=== PATIENT | male | born 1970 | race Hispanic/Latino ===

== ENCOUNTER 2022-01-27 09:33 | Emergency (ER) | payer SELFPAY ==
[2022-01-27 09:48] VITALS: BP 138/80; PULSE 90; RESP 18; TEMP 36.9; O2SAT 98
--- NOTE | 2022-01-27 10:36 | ED.URI ---
HPI - URI/Sore Throat General Chief Complaint: Upper Respiratory Infection Stated Complaint: Headache,Bodyache Time Seen by Provider: 01/27/22 10:36 Source: patient Mode of arrival: ambulatory Limitations: no limitations History of Present Illness HPI Narrative: 51-year-old male presents with complaint of headache, body aches, fever, chills, fatigue for 3 days. Denies nausea vomiting diarrhea. No cough no congestion or sore throat. All states headache is what is bothering him the most. Is taping ibuprofen with some relief. He reports that he has had a few coworkers that are also sick. All systems reviewed and negative except as noted above. Related Data Home Medications Medication Instructions Recorded Confirmed allopurinol 100 mg tablet 200 mg PO DAILY 01/27/22 01/27/22 atenolol 100 mg-chlorthalidone 25 1 tablet PO DAILY 01/27/22 01/27/22 mg tablet atorvastatin 40 mg tablet 40 mg PO DAILY 01/27/22 01/27/22 telmisartan 80 mg tablet 80 mg PO DAILY 01/27/22 01/27/22 Allergies Allergy/AdvReac Type Severity Reaction Status Date / Time No Known Allergies Allergy Verified 01/27/22 10:18 Review of Systems Review of Systems: CONSTITUTIONAL: Reports fever, chills, or sweats. EYES: Denies visual changes, redness, or discharge. ENT: Denies rhinorrhea, congestion, sore throat, or otalgia. CARDIOVASCULAR: Denies chest pain, palpitations, or edema. RESPIRATORY: Denies cough or dyspnea. GASTROINTESTINAL: Denies abdominal pain, nausea, vomiting, or diarrhea. GENITOURINARY: Denies dysuria or hematuria. SKIN: Denies rash or itching. MUSCULOSKELETAL: Denies back pain, joint pain. Reportsmyalgia. NEUROLOGIC: reports headache. Denies numbness, or weakness. PSYCHIATRIC: Denies anxiety or depression. All other systems reviewed are negative, except as documented in HPI. PMFSH Comments At time of signature, agree with nursing past medical, surgical, social and family history. There is no relevant family history pertinent to the presenting complaint. Exam Narrative: GENERAL: This is a well-nourished, well-developed patient. Patient is ill-appearing but in no distress. HEAD: normocephalic, atraumatic. EYES: PERRL. Sclera clear/white. Vision is grossly intact. EARS: External ears normal, auditory canals clear and without drainage, TMs normal without perforation. Hearing grossly intact. NOSE: External nose normal with no obvious nasal discharge, nares without redness, no rhinorrhea. THROAT: Mucous membranes moist, posterior pharynx clear. NECK: Neck supple, non-tender without lymphadenopathy, masses or thyromegaly. CARDIOVASCULAR: Regular rate and rhythm without murmurs, gallops, or rubs. RESPIRATORY: Clear to auscultation. Breath sounds equal bilaterally. No wheezes, rales, or rhonchi. SKIN: warm, Dry, intact with no suspicious lesions or rash, good texture and turgor. NEURO: awake, alert, and oriented to person, place and time. There were no obvious focal neurologic abnormalities. EXTREMITIES: No joint tenderness, effusion, or edema noted. delete Course Course Level of Care: Express Care Visit Vital Signs Vital signs: Vital Signs Temperature 36.9 C 01/27/22 09:48 Pulse Rate 90 01/27/22 09:48 Respiratory Rate 18 01/27/22 09:48 Blood Pressure 138/80 01/27/22 09:48 Pulse Oximetry 98 01/27/22 09:48 Oxygen Delivery Room Air 01/27/22 09:48 Temperature 36.9 C 01/27/22 09:48 Pulse Rate 90 01/27/22 09:48 Respiratory Rate 18 01/27/22 09:48 Blood Pressure 138/80 01/27/22 09:48 Pulse Oximetry 98 01/27/22 09:48 Oxygen Delivery Room Air 01/27/22 09:48 Reviewed MDM - URI/Sore Throat MDM Narrative Medical decision making narrative: negative influenza and COVID test today. Vital signs are stable. Exam negative. Symptoms are viral. Patient is aware of diagnosis, understands and agrees to treatment plan. Anticipatory guidance given. Patient agrees to follow-up as dire
== END 2022-01-27 10:50 | disposition home or self-care (01) ==
PROVIDERS: Emergency Provider Nurse Practitioner Family; PCP Physician Assistant
DX: B34.9 Viral infection, unspecified (principal); Z20.822 Contact with and (suspected) exposure to COVID-19; I10 Essential (primary) hypertension; M10.9 Gout, unspecified
CPT/HCPCS: 87426; 99213; C9803; G0463

== ENCOUNTER 2023-12-23 17:58 | Emergency (ER) | payer SELFPAY ==
--- NOTE | 2023-12-23 18:02 | ED.GENADULT ---
HPI - General Adult General Chief complaint: Weakness Stated complaint: Weakness/High BP/SOB Time Seen by Provider: 12/23/23 18:03 Source: patient and family (Daughter interpreted) Mode of arrival: ambulatory Limitations: no limitations History of Present Illness HPI narrative: Patient is a 53-year-old male who presents with weakness, shortness of breath, heart racing episodes that started at 11:00 a.m. this morning. Patient states that episode starts with heart racing and being short of breath and then starts sweating and feels fatigued. Patient has had multiple of these episodes throughout the day. Patient has history of high blood pressure but was 130s over 90s at home. Denies any known sick contacts. Denies any fever, chills, nausea, vomiting, diarrhea. Denies any numbness or tingling on 1 side of the body. No history of stroke. Related Data Home Medications Medication Instructions Recorded Confirmed allopurinol 100 mg tablet 200 mg PO DAILY 01/27/22 12/23/23 atenolol 100 mg-chlorthalidone 25 1 tablet PO DAILY 01/27/22 12/23/23 mg tablet atorvastatin 40 mg tablet 40 mg PO DAILY 01/27/22 12/23/23 telmisartan 80 mg tablet 80 mg PO DAILY 01/27/22 12/23/23 Allergies Allergy/AdvReac Type Severity Reaction Status Date / Time No Known Allergies Allergy Verified 12/23/23 18:01 Review of Systems Review of Systems: All systems reviewed & are unremarkable except as noted in HPI and below Constitutional: Constitutional: Denies body ache(s), Denies chills, Reports fatigue, Denies fever(s), Denies headache(s), Denies malaise and Reports weakness Eyes: Eyes: Denies blurry vision, Denies irritation and Denies loss of vision ENT: Denies otalgia, Denies headache(s), Denies nasal discharge, Denies sinus pain and Denies sore throat Cardiovascular: Cardiovascular: Denies chest pain, Denies irregular heart rhythm, Reports palpitations and Reports dyspnea Respiratory: Respiratory: Denies dyspnea Gastrointestinal: Gastrointestinal: Denies abdominal pain, Denies melena, Denies hematochezia, Denies diarrhea, Denies nausea and Denies vomiting Musculoskeletal: Musculoskeletal: Denies back pain, Denies myalgias and Denies arthralgias Integumentary/Breasts: Skin/Breast: Denies pruritus and Denies rash Neurologic: Denies headache(s), Denies loss of vision and Denies weakness Psychiatric: Psychiatric: Reports no additional psychiatric complaints Endocrine: Endocrine: Denies fatigue PMFSH Comments At time of signature, agree with nursing past medical, surgical, social and family history. There is no relevant family history pertinent to the presenting complaint. Exam Const: General: cooperative, healthy appearing, comfortable, no acute distress and well nourished Nutritional Appearance: well nourished Orientation/consciousness: patient oriented x3 Limitations: no limitations HENMT: Head: normal to inspection, normocephalic and atraumatic Ears: hearing grossly normal bilaterally and external ears normal Face/Nose/Sinus: Normal external nose present, normal facial exam and face symmetric Face and sinus: normal facial exam and face symmetric Mouth: Yes lip normal Eyes: General: appearance normal, both eyes and all related structures Alignment and Position: alignment normal and position normal Periorbital: periorbital findings normal Eyelids: eyelids normal Pupils: Equal, round and reactive pupils present EOM: EOMs intact bilaterally Neck: Neck: normal visual inspection, full ROM and supple Chest: Chest palpation & inspection: normal inspection of the chest Resp: Effort & Inspection: normal respiratory effort and able to speak in complete sentences Auscultation: clear to auscultation bilaterally Cardio: Rate: regular rate Rhythm: regular rhythm Heart sounds: S1 normal heart sound present and S2 normal heart sound present GI: Inspection: normal to inspection Skin: General skin exam: normal color and no rashes or les
[2023-12-23 18:07] VITALS: BP 135/90; PULSE 49; RESP 16; TEMP 36.6; O2SAT 99
== END 2023-12-23 18:23 | disposition short-term general hospital (02) ==
PROVIDERS: Emergency Provider Nurse Practitioner Family; PCP Physician Assistant
DX: R29.810 Facial weakness (principal); R00.2 Palpitations
CPT/HCPCS: 99215; G0463

== ENCOUNTER 2023-12-23 18:48 | Emergency (ER) | payer SELFPAY ==
--- NOTE | ~2023-12-23 | CT_ITS ---
CT brain wo con Ordering provider: Jessica Wyatt MD History: 53 years Male with . facial droop . Comparison: None. Technique: CT of the head without contrast. Radiation reduction technique utilized.The dose-length product was 681 mGy-cm. FINDINGS: BRAIN PARENCHYMA AND CSF SPACES: No midline shift, mass effect or hemorrhage. The brain parenchyma a nd CSF spaces are otherwise normal. VISUALIZED PARANASAL SINUSES: Well aerated. 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 MASTOIDS: Well aerated. BONES: The bones appear intact. SOFT TISSUES: Visualized nasopharynx is normal. Superficial soft tissues are normal. IMPRESSION: No acute intracranial findings. Reviewed, dictated and finalized at location A.
[2023-12-23 18:51] VITALS: BP 146/96; PULSE 56; RESP 15; TEMP 36.5; O2SAT 100
[2023-12-23 22:03] VITALS: BP 135/86; PULSE 48; RESP 16; TEMP 36.6; O2SAT 100
--- NOTE | 2023-12-23 22:25 | ED.NEUROSD ---
HPI - Neuro Symptoms/Deficit General Chief Complaint: Suspected CVA Stated Complaint: possible stroke, montserratian speaking Time Seen by Provider: 12/23/23 21:51 History of Present Illness HPI Narrative: 53-year-old male presenting to the emergency department for evaluation for rapid heart rate associated with panic attacks. Patient family was translating and they declined the use the transiting software. Patient was adamant that the anxiety starts 1st and then he has the sensation rapid heart rate. Patient denies any prior history of CVA or OK. patient states that he does ruminate on things and hates driving in traffic. Today he states he was thinking about things this caused increased anxiety and then had rapid heart rate. Patient initially presented to urgent care they are concerned about facial droop. Patient reports all symptoms have resolved upon arrival to the emergency department. Related Data Home Medications Medication Instructions Recorded Confirmed allopurinol 100 mg tablet 200 mg PO DAILY 01/27/22 12/23/23 atenolol 100 mg-chlorthalidone 25 1 tablet PO DAILY 01/27/22 12/23/23 mg tablet atorvastatin 40 mg tablet 40 mg PO DAILY 01/27/22 12/23/23 telmisartan 80 mg tablet 80 mg PO DAILY 01/27/22 12/23/23 Allergies Allergy/AdvReac Type Severity Reaction Status Date / Time No Known Allergies Allergy Verified 12/23/23 19:02 Review of Systems Review of Systems: All systems reviewed & are unremarkable except as noted in HPI and below Exam Narrative: APPEARANCE: Well appearing, no pain, no distress, well-nourished. HEAD: normocephalic, atraumatic. EYES: PERRLA/EOMI, conjunctivae clear. NOSE: Normal no drainage EARS:TMS clear with good light reflex. THROAT: Pharynx clear, no exudate. NECK: Supple. No adenopathy, no masses. RESPIRATORY: Airway patent, respirations nonlabored. Clear to auscultation bilaterally, no rales, rhonchi, wheezing. CARDIOVASCULAR: Regular rate and rhythm without murmurs rubs or gallops. ABDOMINAL: Soft, nontender, nondistended, normal bowel sounds MUSCULOSKELETAL: Moves all extremities. Strength/ROM intact, No edema, No calf tenderness. NEURO: Alert. Cranial nerves II through XII intact. Grossly intact SKIN: Warm, dry. Normal Color Course Vital Signs Vital signs: Vital Signs Temperature 97.7 F 12/23/23 18:51 Pulse Rate 56 L 12/23/23 18:51 Respiratory Rate 15 12/23/23 18:51 Blood Pressure 146/96 H 12/23/23 18:51 Pulse Oximetry 100 12/23/23 18:51 Oxygen Delivery Room Air 12/23/23 18:51 Temperature 97.8 F 12/23/23 22:03 Pulse Rate 48 L 12/23/23 22:03 Respiratory Rate 16 12/23/23 22:03 Blood Pressure 135/86 12/23/23 22:03 Pulse Oximetry 100 12/23/23 22:03 Oxygen Delivery Room Air 12/23/23 18:51 MDM - Neuro Symptoms/Deficit MDM Narrative Medical decision making narrative: 53-year-old male presents to the emergency department for CVA workup. Head CT was negative. EKG showed normal sinus rhythm. Discharge Plan Discharge Clinical Impression: Palpitations, Anxiety Patient Disposition: Home, Self-Care Condition: Stable Instructions: Antibiotic Form, Heart Palpitations (DC), Anxiety (ED) Additional Instructions: Medication as directed for anxiety. Have close follow-up with primary care physician for additional outpatient cardiac testing. If you have any worsening symptoms then please call or return to the emergency department. Prescriptions: New lorazepam [Ativan] 0.5 mg tablet 0.5 mg PO BID PRN (Reason: anxiety) Qty: 14 0RF No Action atorvastatin 40 mg tablet 40 mg PO DAILY atenolol-chlorthalidone 100-25 mg tablet 1 tablet PO DAILY allopurinol 100 mg tablet 200 mg PO DAILY telmisartan 80 mg tablet 80 mg PO DAILY Follow-up/Referrals: Sarai,AMANDA Brantley [Primary Care Provider] -
--- NOTE | 2023-12-23 22:35 | ECG_ITS ---
Test Date: 2023-12-23 22:55:00 Measurements Intervals [place] Rate: 54 P: 0 MN: 0 QRS: 29 QRSD: 102 T: 43 QT: 406 QTc: 385 Interpretive Statements SINUS BRADYCARDIA OTHERWISE NORMAL ECG No previous ECG available for comparison Electronically Signed On 12-24-2023 07:21:30 CDT by Aram Johnson M.D.
[2023-12-23] MEDS: LORazepam (*CRX) 0.5 MG TABLET PO (22:42)
== END 2023-12-23 23:15 | disposition home or self-care (01) ==
PROVIDERS: Emergency Provider Emergency Medicine; PCP Physician Assistant
DX: F41.9 Anxiety disorder, unspecified (principal); R00.2 Palpitations; R00.1 Bradycardia, unspecified
CPT/HCPCS: 70450; 93005; 99284; A9270

== ENCOUNTER 2024-03-27 01:41 | Emergency (ER) | payer SELFPAY ==
--- NOTE | ~2024-03-27 | XR_ITS ---
EXAMINATION: XR chest 2V DATE: 03/27/2024 02:26 INDICATION: Chest pain. Shortness of breath. TECHNIQUE: Frontal and lateral views of the chest were obtained. COMPARISON: None. FINDINGS: There is no pneumonia, pleural effusion, or pneumothorax. The heart size is normal. There i s a prominent left pericardial fat pad. IMPRESSION: 1. No acute cardiopulmonary disease. Reviewed, dictated and finalized at location A. STANT PROFESSOR OF BUSINESS
[2024-03-27 01:47] VITALS: BP 132/76; PULSE 56; RESP 15; TEMP 36.6; O2SAT 100
--- NOTE | 2024-03-27 01:53 | ECG_ITS ---
Test Date: 2024-03-27 01:58:18 Measurements Intervals [place] Rate: 54 P: 43 MA: 169 QRS: 29 QRSD: 98 T: 57 QT: 395 QTc: 377 Interpretive Statements SINUS BRADYCARDIA ABNORMAL ECG Electronically Signed On 03-27-2024 10:49:08 MINERAL SURVEYING TECHNICIAN by Chai Hutson M.D.
[2024-03-27 02:09] LABS: Basophils Absolute Auto 0.1 K/mm3 (0.0-0.1); Basophils Percent Auto 1.1 % (0.2-1.2); Eosinophils Absolute Auto 0.2 K/mm3 (0-0.3); Hematocrit 42.9 % (42.0-52.0); Hemoglobin 14.9 g/dL (14.0-18.0); Immature Granulocyte Absolute 0.05 K/mm3 (0.00-0.031); Immature Granulocyte Percent A 0.5 % (0-0.5); Lymphocytes Absolute Auto 3.94 K/mm3 (0.9-3.2); Lymphocytes Percent Auto 37.7 % (18.3-44.2); Mean Corpuscular HGB Conc 34.7 g/dl (32-36); Mean Corpuscular Hemoglobin 29.6 pg (26-34); Mean Corpuscular Volume 85.3 fl (80-100); Mean Platelet Volume 11.3 fl (7.4-10.4); Monocytes Absolute Auto 0.9 K/mm3 (0.1-0.6); Monocytes Percent Auto 8.1 % (2.6-8.5); Neutrophils Absolute Auto 5.3 K/mm3 (1.3-6.7); Neutrophils Percent Auto 50.6 % (45.5-73.1); Platelet Count Result 260 k/mm3 (150-375); Red Blood Count 5.03 M/mm3 (4.6-6.20); Red Cell Distribution Width 14.3 % (11.5-14.5); White Blood Count 10.5 K/mm3 (4.5-10.0)
[2024-03-27 02:25] LABS: Alanine Aminotransferase 27 U/L (6-50); Albumin Level 4.8 g/dL (3.5-5.1); Alkaline Phosphatase 112 U/L (38-126); Anion Gap 15 mmol/L (4-12); Aspartate Amino Transferase 29 U/L (17-59); Bilirubin,Total 0.8 mg/dL (0.2-1.3); Blood Urea Nitrogen 19 mg/dL (9-20); Calcium 9.5 mg/dL (8.4-10.2); Carbon Dioxide 22 mmol/L (22-30); Chloride 98 mmol/L (98-107); Estimated CRCL calculation 74 ml/min; Estimated Glomerular Filt Rate > 60; Glucose 130 mg/dL (65-110); Lipase 157 U/L (23-300); Potassium 3.4 mmol/L (3.4-5.0); Sodium 135 mmol/L (137-145)
[2024-03-27 02:36] LABS: Prothrombin Time 13.5 Seconds (11.1-14.7)
[2024-03-27 02:37] LABS: Troponin I < 0.012 ng/mL (0.000-0.034)
[2024-03-27 06:49] LABS: Troponin I < 0.012 ng/mL (0.000-0.034)
[2024-03-27 07:40] VITALS: BP 138/81; PULSE 56; PULSE 57; RESP 17; O2SAT 98
--- NOTE | 2024-03-27 08:16 | ED_ITS ---
HPI - General Adult General Chief complaint: Chest Pain Stated complaint: chest pain Time Seen by Provider: 03/27/24 07:31 History of Present Illness HPI narrative: Patient is a 54-year-old male who presents ER with chest pain. Has been evaluated for chest pain the past. Recently started on sertraline for anxiety. He is only on been on it for a week. No fevers or chills or sweats. No exertional component. Occasionally worsens when he is having stress at work. He did take Ativan in the past which has helped his symptoms. Related Data Home Medications ?Medication ?Instructions ?Recorded ?Confirmed ?Last Taken ?Type allopurinol 100 mg tablet 200 mg PO DAILY 01/27/22 12/23/23 Unknown History atenolol 100 mg-chlorthalidone 25 1 tablet PO DAILY 01/27/22 12/23/23 Unknown History mg tablet atorvastatin 40 mg tablet 40 mg PO DAILY 01/27/22 12/23/23 Unknown History telmisartan 80 mg tablet 80 mg PO DAILY 01/27/22 12/23/23 Unknown History Allergies Allergy/AdvReac Type Severity Reaction Status Date / Time No Known Allergies Allergy Verified 03/27/24 07:41 Review of Systems 2 Review of Systems: All systems reviewed & are unremarkable except as noted in HPI and below Constitutional: Constitutional: Reports no additional constitutional complaints ENT: Reports system reviewed and no additional complaints, except as documented Cardiovascular: Cardiovascular: Reports no additional cardiovascular complaints Respiratory: Respiratory: Reports no additional respiratory complaints Gastrointestinal: Gastrointestinal: Reports no additional gastrointestinal complaints PMFSH Past Medical History Medical History (Updated 03/27/24 @ 10:09 by Campbell Summers MD) Pre-diabetes Hyperlipidemia Hypertension Exam 2 Narrative: GENERAL: Well-appearing, well-nourished, and in no acute distress. HEAD: Normocephalic, atraumatic. ENT: Mucous membranes moist. CHEST: Clear to auscultation. No respiratory distress. HEART: Regular rate and rhythm. Normal peripheral pulses. ABDOMEN: Soft, nontender, nondistended. EXTREMITIES: Normal range of motion. No edema. SKIN: Warm, dry, no rash. NEURO: Alert and oriented x3. PSYCH: Normal mood and affect. Course Course Emergency Course: Troponin negative x2. Patient given reassurance. Encouraged continues to sertraline and will give some Ativan for panic attacks. Vital Signs Vital signs: Vital Signs Temperature 97.9 F 03/27/24 01:47 Pulse Rate 56 L 03/27/24 01:47 Respiratory Rate 15 03/27/24 01:47 Blood Pressure 132/76 03/27/24 01:47 Pulse Oximetry 100 03/27/24 01:47 Oxygen Delivery Room Air 03/27/24 01:47 Temperature 97.9 F 03/27/24 01:47 Pulse Rate 55 L 03/27/24 08:27 Respiratory Rate 20 03/27/24 08:27 Blood Pressure 122/84 03/27/24 08:27 Pulse Oximetry 99 03/27/24 08:27 Oxygen Delivery Room Air 03/27/24 07:40 Medical Decision Making Vital Signs Vital Signs: Vital Signs Temperature 97.9 F 03/27/24 01:47 Pulse Rate 56 L 03/27/24 01:47 Respiratory Rate 15 03/27/24 01:47 Blood Pressure 132/76 03/27/24 01:47 Pulse Oximetry 100 03/27/24 01:47 Oxygen Delivery Room Air 03/27/24 01:47 Temperature 97.9 F 03/27/24 01:47 Pulse Rate 55 L 03/27/24 08:27 Respiratory Rate 20 03/27/24 08:27 Blood Pressure 122/84 03/27/24 08:27 Pulse Oximetry 99 03/27/24 08:27 Oxygen Delivery Room Air 03/27/24 07:40 Lab Data 03/27/24 02:01 03/27/24 02:01 Labs: Lab Results 03/27/24 03/27/24 Range/Units 02:01 06:21 WBC 10.5 H (4.5-10.0) K/mm3 RBC 5.03 (4.6-6.20) M/mm3 Hgb 14.9 (14.0-18.0) g/dL Hct 42.9 (42.0-52.0) % MCV 85.3 (80-100) fl MCH 29.6 (26-34) pg MCHC 34.7 (32-36) g/dl RDW 14.3 (11.5-14.5) % Plt Count 260 (150-375) k/mm3 MPV 11.3 H (7.4-10.4) fl Immature Gran % (Auto) 0.5 (0-0.5) % Neut % (Auto) 50.6 (45.5-73.1) % Lymph % (Auto) 37.7 (18.3-44.2) % [place]wey % (Auto) 8.1 (2.6-8.5) % Eos % (Auto) 2.0 (0-4.4) % Baso % (Auto) 1.1 (0.2-1.2) % Lymph # (Auto) 3.94 H (0.9-3.2) K/mm3 [place] # (Auto) 0.9 H (0.1-0.6) K/mm3 Eos # (Auto) 0.2 (0-0.3) K/mm3 Baso # (Auto) 0.1 (0.0-0.1) K/mm3 Abs Immat Gran (auto) 0.05 H (0.00-0.031) K/mm3 Absolute Neuts (auto) 5.3 (1.3-6.7) K/mm3 Absolute Nucleated RBC 0.000 (0.0-0.012) K/mm3 Nucleated RBC % 0.0 (0.0-0.2) % PT 13.5 (11.1-14.7) Seconds INR 1.0 APTT 30.0 (22.3-36.8) Seconds Sodium 135 L (137-145) mmol/L Potassium 3.4 (3.4-5.0) mmol/L Chloride 98 (98-107) mmol/L Carbon Dioxide 22 (22-30) mmol/L Anion Gap 15 H (4-12) mmol/L BUN 19 (9-20) mg/dL Creatinine 1.03 (0.7-1.3) mg/dL Estim Creat Clear Calc 74 ml/min Estimated GFR > 60 (59 - ) Glucose 130 H (65-110) mg/dL Calcium 9.5 (8.4-10.2) mg/dL Total Bilirubin 0.8 (0.2-1.3) mg/dL AST 29 (17-59) U/L ALT 27 (6-50) U/L Alkaline Phosphatase 112 (38-126) U/L Troponin I < 0.012 < 0.012 (0.000-0.034) ng/mL Total Protein 8.0 (6.3-8.2) g/dL Albumin 4.8 (3.5-5.1) g/dL Lipase 157 (23-300) U/L Imaging Data Radiologist's impression: ITS Impressions Chest X-Ray 03/27/24 06:25 IMPRESSION: 1. No acute cardiopulmonary disease. ECG Data EKG #1: ECG completion date: 03/27/24 ECG completion time: 01:58 EKG Interpretation: bradycardia (54), sinus rhythm, no ST changes, normal QRS, normal QT and NL axis Discharge Plan Discharge Clinical Impression: Anxiety Patient Disposition: Home, Self-Care Condition: Stable Instructions: Anxiety (ED) Additional Instructions: Please return to the emergency department if you develop severe and persistent chest pain, difficulty breathing, dizziness, leg swelling or if you are coughing up blood as these can be signs of a medical emergency. Please call your doctor for a follow up appointment to determine the need for further testing. Patient Language: [place] Prescriptions: New lorazepam [Ativan] 0.5 mg tablet 0.5 mg PO BID PRN (Reason: anxiety) Qty: 14 0RF No Action atorvastatin 40 mg tablet 40 mg PO DAILY atenolol-chlorthalidone 100-25 mg tablet 1 tablet PO DAILY allopurinol 100 mg tablet 200 mg PO DAILY telmisartan 80 mg tablet 80 mg PO DAILY lorazepam [Ativan] 0.5 mg tablet 0.5 mg PO BID PRN (Reason: anxiety) Qty: 14 0RF Follow-up/Referrals: Sarai,AMANDA Brantley [Primary Care Provider] - 1 Week
[2024-03-27 08:27] VITALS: BP 122/84; PULSE 55; RESP 20; O2SAT 99
== END 2024-03-27 08:29 | disposition home or self-care (01) ==
PROVIDERS: Emergency Medicine; Emergency Provider Emergency Medicine; PCP Physician Assistant
DX: F41.9 Anxiety disorder, unspecified (principal); E78.5 Hyperlipidemia, unspecified; I10 Essential (primary) hypertension; R73.03 Prediabetes
CPT/HCPCS: 36415; 71046; 80053; 83690; 84484; 85025; 85610; 85730; 93005; 99284